=== PATIENT | male | born 2000 | race Caucasian/White ===

== ENCOUNTER 2020-06-30 23:28 | Emergency (ER) | payer OTHER ==
[~2020-06-30] VITALS: Ht 177.8 cm; Wt 76.2 kg
[2020-06-30 23:33] VITALS: Ht 177.8 cm; Wt 76.2 kg
[2020-07-01 02:36] VITALS: BP 141/71
== END 2020-07-01 02:36 | disposition home or self-care (01) ==
LOC: ED 23:28
DX: S01.01XA Laceration without foreign body of scalp, initial encounter (principal); S50.311A Abrasion of right elbow, initial encounter; M54.2 Cervicalgia; Y04.0XXA Assault by unarmed brawl or fight, initial encounter; Y93.89 Activity, other specified; Y92.89 Other specified places as the place of occurrence of the external cause; Y99.8 Other external cause status
CPT/HCPCS: 90715

== ENCOUNTER 2020-07-07 17:42 | Emergency (ER) | payer OTHER ==
[~2020-07-07] VITALS: Ht 175.3 cm; Wt 74.8 kg
[2020-07-07 17:51] VITALS: Ht 175.3 cm; Wt 74.8 kg
[2020-07-07 18:29] VITALS: BP 106/51
== END 2020-07-07 18:29 | disposition home or self-care (01) ==
LOC: ED 17:42
DX: S01.01XD Laceration without foreign body of scalp, subsequent encounter (principal); X58.XXXD Exposure to other specified factors, subsequent encounter